=== PATIENT | female | born 1985 | race Caucasian/White ===

== ENCOUNTER → 2021-08-31 | Outpatient (CLI) | payer OTHER, MEDICAID ==
[~2021-08-31] MED LIST: BIRTH CONTROL
== END ==
LOC: M.LAB 12:14
PROVIDERS: ATTEND Internal Medicine Gastroenterology
DX: Z01.812 Encounter for preprocedural laboratory examination (principal); Z20.822 Contact with and (suspected) exposure to COVID-19